=== PATIENT | female | born 1985 | race Caucasian/White ===

== ENCOUNTER 2019-03-20 09:12 | Emergency (ER) | payer BC, OTHER ==
[2019-03-20 10:57] LABS: Urine Blood TRACE (NEG); Urine Glucose NEGATIVE (NEG); Urine Protein 2+ (NEG); Urine Specific Gravity >1.030 (1.005-1.030); Urine pH 5.5 (5.0-7.0)
[2019-03-20] MEDS ORDERED: NA CHLORIDE 0.9% 1,000 ML ONE (11:11)
[2019-03-20 11:27] LABS: Absolute Lymphocytes (CBC) 0.8 K/uL (0.7-4.9); Basophils % 0.7 % (0-1.3); Eosinophils % 0.9 % (0-4.4); Hematocrit 40.4 % (36.0-45.0); Lymphocytes % 13.5 % (15.3-44.8); MPV 9.6 fL (7.6-11.3); Monocytes % 6.9 % (3.3-12.3); RBC Red Blood Cell Count 4.67 M/uL (3.86-4.86)
[2019-03-20] MEDS ORDERED: KETOROLAC 30 MG/ML INJ ONE (11:28)
[2019-03-20 11:41] LABS: Urine Bacteria <20 /HPF (<20)
[2019-03-20 11:42] LABS: Urine Mucus 2+ /HPF (NONE SEEN)
[2019-03-20 11:43] LABS: Urine Culture Reflex Order NOT NEEDED
[2019-03-20 11:46] LABS: Albumin 4.3 g/dL (3.4-5.0); Bilirubin Direct 0.1 mg/dL (0-0.2); Bilirubin Total 0.4 mg/dL (0.2-1.0); Potassium 4.1 mmol/L (3.5-5.1); Protein, Total 7.5 g/dL (6.4-8.2)
--- NOTE | 2019-03-20 12:44 | RAD REPORT ---
EXAM DESCRIPTION: CT - Abdomen Pelvis W Contrast - 03/20/2019 12:36 pm CLINICAL HISTORY: Bilateral hip pain, back pain, pelvic and vaginal pain, dysuria COMPARISON: None. TECHNIQUE: Biphasic, helical CT imaging of the abdomen and pelvis was performed following 100 ml non -ionic IV contrast. Oral contrast was given. All CT scans are performed using dose optimization technique as appropriate and may include automated exposure control or mA/KV adjustment according to patient size. FINDINGS: No suspicious findings in the lung bases. The liver, spleen, and pancreas show no suspicious findings. Gallbladder and biliary tree are also wi thout suspicious finding. Mild to moderate left-sided hydronephrosis is present secondary to a 3 mm left UVJ calculus. There is delayed function of the left kidney due to the obstruction. No pyelonephritis findings. No solid mas s of either kidney. No bladder abnormalities. No adrenal abnormalities. No uterine abnormality. Left ovary is unremarkable. Right ovary contains an 18 millimeter partially involuted cyst. No fallopian t ube dilatation. No dilated bowel loops or bowel wall thickening. No free air or pneumatosis. Physiologic quantity of free fluid in the cul de sac. No hernia, mass or bulky lymphadenopathy. No suspicious bony findings. IMPRESSION: [id number] left-sided hydronephrosis secondary to a 3 mm left UVJ calculus.
--- NOTE | 2019-03-20 13:32 | ER ---
Nurse's Notes [facility] Name: Saumya Chiu Age: 33 yrs Sex: Female : 1985 Arrival Date: 03/20/2019 Time: 09:16 Bed 2 Private MD: Diagnosis: Hydronephrosis with renal and ureteral calculous obstruction;Dehydration Presentation: 03/20 09:44 Presenting complaint: Patient states: vaginal stabbing pain, bilateral hip pain, back sv pain, abd pain, vomiting, lightheaded, dysuria since last night. 09:47 Transition of care: patient was not received from another setting of care. Onset of sg symptoms was March 20, 2019. Risk Assessment: Do you want to hurt yourself or someone else? Patient reports no desire to harm self or others. Initial Sepsis Screen: Does the patient meet any 2 criteria? No. Patient's initial sepsis screen is negative. Does the patient have a suspected source of infection? Yes: Dysuria/Frequency/Urgency/UTI. Care prior to arrival: Medication(s) given: Motrin, taken at 0400 this morning. 09:47 Acuity: CHRISTIANA 3 sg 09:47 Method Of Arrival: Wheelchair sg Triage Assessment: 09:44 General: Appears in no apparent distress. uncomfortable, well developed, Behavior is sv calm, cooperative, appropriate for age. Pain: Complains of pain in back, abdomen and pelvis Pain currently is 9 out of 10 on a pain scale. Quality of pain is described as stabbing, Pain began 1 day ago. Is continuous. Neuro: Level of Consciousness is awake, alert, obeys commands, Oriented to person, place, time, situation, Moves all extremities. Full function Gait is steady. Respiratory: Respiratory effort is even, unlabored, Respiratory pattern is regular, symmetrical. GI: Reports lower abdominal pain, vomiting. : Reports pain with urination. Derm: Skin is pink, warm \T\ dry. Historical: - Allergies: 09:48 No Known Allergies; sg - Home Meds: 09:48 Synthroid 88 mcg Oral tab 1 tab once daily [Active]; sg 09:51 [place] Carbonate Oral [Active]; Lamictal Oral [Active]; gabapentin oral oral [Active]; sv Clonazepam Oral as needed [Active]; - PMHx: 09:48 Hypothyroidism; sg 09:51 Bipolar disorder; Depression; Anxiety; sv - PSHx: 09:48 ; sg - Immunization history:: Adult Immunizations up to date. - Social history:: Smoking status: Patient/guardian denies using tobacco, Patient/guardian denies using street drugs, IV drugs. - Ebola Screening: : Patient negative for fever greater than or equal to 101.5 degrees Fahrenheit, and additional compatible Ebola Virus Disease symptoms Patient denies exposure to infectious person Patient denies travel to an Ebola-affected area in the 21 days before illness onset No symptoms or risks identified at this time. Screenin:51 Abuse screen: Denies threats or abuse. Denies injuries from another. Nutritional sv screening: No deficits noted. Tuberculosis screening: No symptoms or risk factors identified. Fall Risk None identified. Assessment: 09:54 Reassessment: Patient appears in no apparent distress at this time. No changes from sv previously documented assessment. See triage assessment. 11:20 Reassessment: Patient appears in no apparent distress at this time. No changes from sv previously documented assessment. Patient and/or family updated on plan of care and expected duration. Pain level reassessed. Patient is alert, oriented x 3, equal unlabored respirations, skin warm/dry/pink. 12:20 Reassessment: Patient appears in no apparent distress at this time. No changes from sv previously documented assessment. Patient and/or family updated on plan of care and expected duration. Pain level reassessed. Patient is alert, oriented x 3, equal unlabored respirations, skin warm/dry/pink. 14:00 Reassessment: Patient appears in no apparent distress at this time. No changes from sv previously documented assessment. Patient and/or family updated on plan of care and expected duration. Pain level reassessed. Patient is alert, oriented x 3, equal unlabored respirations, skin warm/dry/pink. Vital Signs: 09:44 BP 114 / 86; Pulse 81; Resp 19; Temp 98.4(O); Pulse Ox 100% on R/A; Pain 8/10; jb1 09:52 Weight 62.6 kg; Height 5 ft. 0 in. (152.40 cm); sv 10:43 BP 116 / 87; Pulse 77; Resp 18; Pulse Ox 99% on R/A; jb1 11:30 BP 109 / 86; Pulse 84; Resp 18; Pulse Ox 100% ; sv 12:00 BP 104 / 85; Pulse 74; Resp 16; Pulse Ox 100% ; sv 13:47 BP 107 / 80; Pulse 80; Resp 16; Pulse Ox 99% ; sv 09:52 Body Mass Index 26.95 (62.60 kg, 152.40 cm) sv ED Course: 09:16 Patient arrived in ED. as 09:26 Irma Spaulding FNP-C is [facility]. snw 09:26 Donnie Vásquez MD is Attending Physician. snw 09:43 Janna Multani RN is Primary Nurse. sv 09:47 Triage completed. sg 09:49 Arm band placed on. sg 09:51 Patient has correct armband on for positive identification. Bed in low position. Call sv light in reach. Adult w/ patient. Pulse ox on. NIBP on. Door closed. Warm blanket given. Head of bed elevated. 09:54 Awaiting ED provider evaluation. sv 10:00 Awaiting ED provider evaluation. sv 10:43 Urine collected: clean catch specimen, clear, cloudy. jb1 11:10 Nurse Practitioner and/or Physician Oil Dispatcher to see patient. sv 11:10 Initial lab(s) drawn, by me, sent to lab. Inserted saline lock: 20 gauge in left sv antecubital area, using aseptic technique. Blood collected. Flushed left antecubital with 5 ml normal saline. 11:21 Warm blanket given. sv 12:36 CT Abd/Pelvis - IV Contrast Only In Process Unspecified. EDMS 13:48 No provider procedures requiring assistance completed. IV discontinued, intact, sv bleeding controlled, No redness/swelling at site. Pressure dressing applied. Administered Medications: 11:13 Drug: NS 0.9% 1000 ml Route: IV; Rate: 1 bolus; Site: left antecubital; sv 12:00 Follow up: Response: No adverse reaction; IV Status: Completed infusion; IV Intake: sv 1000ml 11:20 Drug: TORadol 30 mg Route: IVP; Site: left antecubital; sv 12:00 Follow up: Response: No adverse reaction sv 14:00 Drug: KeFLEX 500 mg Route: PO; sv 14:00 Follow up: Response: Medication administered at discharge. sv 14:00 Drug: [place] 5 mg-325 mg 1 tabs Route: PO; sv 14:00 Follow up: Response: Medication administered at discharge. sv Intake: 12:00 IV: 1000ml; Total: 1000ml. sv Outcome: 13:31 Discharge ordered by . snw 13:48 Discharged to home ambulatory, with family. sv 13:48 Condition: stable 13:48 Discharge instructions given to patient, family, Instructed on discharge instructions, follow up and referral plans. no drinking with medication, no driving heavy equipment, medication usage, Demonstrated understanding of instructions, follow-up care, medications, Prescriptions given X 2. 14:01 Patient left the ED. sv Signatures: Dispatcher [employer] EDMS Jose Tello Stephanie, RN RN sv Jd Oseguera RN RN sg Irma Spaulding, PIZZA HUT ASSISTANT-C PIZZA HUT ASSISTANT-Tess Dickinson as Corrections: (The following items were deleted from the chart) 09:51 09:47 Initial Sepsis Screen: Does the patient meet any 2 criteria? Does the patient sv have a suspected source of infection? Yes: Dysuria/Frequency/Urgency/UTI 09:51 09:47 Care prior to arrival: None. sg sv
--- NOTE | 2019-03-20 13:32 | EDPHYS ---
Physician Documentation [facility] Name: Saumya Chiu Age: 33 yrs Sex: Female : 1985 Arrival Date: 03/20/2019 Time: 09:16 Bed 2 Private MD: ED Physician Donnie Vásquez HPI: 03/20 11:04 This 33 yrs old Female presents to ER via Wheelchair with complaints of snw Urinary Problem, Flank Pain, Vomiting, Fever. 11:04 Onset: The symptoms/episode began/occurred suddenly, this morning. Associated signs and snw symptoms: Pertinent positives: abdominal pain, vomiting. It is unknown whether or not the patient has had similar symptoms in the past. It is unknown whether or not the patient has recently seen a physician. no medication changes. Historical: - Allergies: 09:48 No Known Allergies; sg - Home Meds: 09:48 Synthroid 88 mcg Oral tab 1 tab once daily [Active]; sg 09:51 [place] Carbonate Oral [Active]; Lamictal Oral [Active]; gabapentin oral oral [Active]; sv Clonazepam Oral as needed [Active]; - PMHx: 09:48 Hypothyroidism; sg 09:51 Bipolar disorder; Depression; Anxiety; sv - PSHx: 09:48 ; sg - Immunization history:: Adult Immunizations up to date. - Social history:: Smoking status: Patient/guardian denies using tobacco, Patient/guardian denies using street drugs, IV drugs. - Ebola Screening: : Patient negative for fever greater than or equal to 101.5 degrees Fahrenheit, and additional compatible Ebola Virus Disease symptoms Patient denies exposure to infectious person Patient denies travel to an Ebola-affected area in the 21 days before illness onset No symptoms or risks identified at this time. ROS: 11:04 Constitutional: Negative for fever, chills, and weight loss, Eyes: Negative for injury, snw pain, redness, and discharge, ENT: Negative for injury, pain, and discharge, Neck: Negative for injury, pain, and swelling, Cardiovascular: Negative for chest pain, palpitations, and edema, Respiratory: Negative for shortness of breath, cough, wheezing, and pleuritic chest pain, Back: Negative for injury and pain, : Negative for injury, bleeding, discharge, and swelling, MS/Extremity: Negative for injury and deformity, Skin: Negative for injury, rash, and discoloration, Neuro: Negative for headache, weakness, numbness, tingling, and seizure. 11:04 Abdomen/GI: Positive for abdominal pain, nausea, vomiting, of the suprapubic area. Exam: 11:04 Head/Face: Normocephalic, atraumatic. Eyes: Pupils equal round and reactive to light, snw extra-ocular motions intact. Lids and lashes normal. Conjunctiva and sclera are non-icteric and not injected. Cornea within normal limits. Periorbital areas with no swelling, redness, or edema. 11:04 Neck: Trachea midline, no thyromegaly or masses palpated, and no cervical lymphadenopathy. Supple, full range of motion without nuchal rigidity, or vertebral point tenderness. No Meningismus. Chest/axilla: Normal chest wall appearance and motion. Nontender with no deformity. No lesions are appreciated. Cardiovascular: Regular rate and rhythm with a normal S1 and S2. No gallops, murmurs, or rubs. Normal PMI, no JVD. No pulse deficits. Respiratory: Lungs have equal breath sounds bilaterally, clear to auscultation and percussion. No rales, rhonchi or wheezes noted. No increased work of breathing, no retractions or nasal flaring. Back: No spinal tenderness. No costovertebral tenderness. Full range of motion. Skin: Warm, dry with normal turgor. Normal color with no rashes, no lesions, and no evidence of cellulitis. MS/ Extremity: Pulses equal, no cyanosis. Neurovascular intact. Full, normal range of motion. Neuro: Awake and alert, GCS 15, oriented to person, place, time, and situation. Cranial nerves II-XII grossly intact. Motor strength 5/5 in all extremities. Sensory grossly intact. Cerebellar exam normal. Normal gait. Psych: Awake, alert, with orientation to person, place and time. Behavior, mood, and affect are within normal limits. 11:04 Constitutional: The patient appears alert, awake, anxious. 11:04 ENT: Mouth: Oral mucosa: dry. 11:04 Abdomen/GI: Inspection: abdomen appears normal, Bowel sounds: hypoactive, Palpation: moderate abdominal tenderness, in the suprapubic area. Vital Signs: 09:44 BP 114 / 86; Pulse 81; Resp 19; Temp 98.4(O); Pulse Ox 100% on R/A; Pain 8/10; jb1 09:52 Weight 62.6 kg; Height 5 ft. 0 in. (152.40 cm); sv 10:43 BP 116 / 87; Pulse 77; Resp 18; Pulse Ox 99% on R/A; jb1 11:30 BP 109 / 86; Pulse 84; Resp 18; Pulse Ox 100% ; sv 12:00 BP 104 / 85; Pulse 74; Resp 16; Pulse Ox 100% ; sv 13:47 BP 107 / 80; Pulse 80; Resp 16; Pulse Ox 99% ; sv 09:52 Body Mass Index 26.95 (62.60 kg, 152.40 cm) sv MDM: 09:39 Patient medically screened. snw 13:34 Data reviewed: vital signs, nurses notes. Data interpreted: Pulse oximetry: on room air snw is 100 %. Interpretation: normal. Counseling: I had a detailed discussion with the patient and/or guardian regarding: the historical points, exam findings, and any diagnostic results supporting the discharge/admit diagnosis, lab results, radiology results, the need for outpatient follow up, to return to the emergency department if symptoms worsen or persist or if there are any questions or concerns that arise at home. Special discussion: I have referred the patient to see his PCP for further evaluation of high blood pressure. Based on the history and exam findings, there is no indication for further emergent testing or inpatient evaluation. I discussed with the patient/guardian the need to see the urologist for further evaluation of the symptoms. 03/20 09:38 Order name: Urine Culture [facility] 03/20 09:38 Order name: Urine Microscopic Only; Complete Time: 11:47 snw 03/20 10:40 Order name: Urine Dipstick--Ancillary (enter results); Complete Time: 10:58 ag 03/20 10:40 Order name: Urine --Ancillary (enter results); Complete Time: 10:58 ag 03/20 10:51 Order name: Basic Metabolic Panel; Complete Time: 11:47 snw 03/20 10:51 Order name: CBC with Diff; Complete Time: 11:36 snw 03/20 10:51 Order name: Creatinine for Radiology; Complete Time: 11:47 snw 03/20 10:51 Order name: Hepatic Function; Complete Time: 11:47 snw 03/20 10:51 Order name: Lipase; Complete Time: 11:47 snw 03/20 10:58 Order name: Goessel; Complete Time: 12:08 snw 03/20 12:08 Order name: CT Abd/Pelvis - IV Contrast Only; Complete Time: 12:50 snw 03/20 09:38 Order name: Urine Test (obtain specimen); Complete Time: 10:32 snw 03/20 09:38 Order name: Urine Dipstick-Ancillary (obtain specimen); Complete Time: 10:32 snw 03/20 10:51 Order name: Labs collected and sent; Complete Time: 11:13 snw Administered Medications: 11:13 Drug: NS 0.9% 1000 ml Route: IV; Rate: 1 bolus; Site: left antecubital; sv 12:00 Follow up: Response: No adverse reaction; IV Status: Completed infusion; IV Intake: sv 1000ml 11:20 Drug: TORadol 30 mg Route: IVP; Site: left antecubital; sv 12:00 Follow up: Response: No adverse reaction sv 14:00 Drug: KeFLEX 500 mg Route: PO; sv 14:00 Follow up: Response: Medication administered at discharge. sv 14:00 Drug: [place] 5 mg-325 mg 1 tabs Route: PO; sv 14:00 Follow up: Response: Medication administered at discharge. sv Disposition: 19:03 Co-signature as Attending Physician, Donnie Vásquez MD I agree with the assessment and kdr plan of care. Disposition: 03/20/19 13:31 Discharged to Home. Impression: Hydronephrosis with renal and ureteral calculous obstruction, Dehydration. - Condition is Stable. - Discharge Instructions: Dehydration, Adult, Kidney Stones, Hydronephrosis, Dietary Guidelines to Help Prevent Kidney Stones, Rehydration, Adult. - Prescriptions for Keflex 500 mg Oral Capsule - take 1 capsule by ORAL route every 8 hours for 10 days; 30 capsule. Tylenol- Codeine #4 300-60 mg Oral Tablet - take 1 tablet by ORAL route every 6 hours As needed; 6 tablet. - Medication Reconciliation Form, Thank You Letter, Antibiotic Education, Prescription Opioid Use form. - Follow up: Private Physician; When: 2 - 3 days; Reason: Recheck today's complaints, Continuance of care, Re-evaluation by your physician. Follow up: Emergency Department; When: As needed; Reason: Worsening of condition. - Notes: Please speak with your Doctor regarding a lower than expected lithium level. Signatures: Dispatcher [employer] Janna Villeda, RN Jd Gregorio RN RN sg Rittger, Kevin, MD MD [facility] Irma Spaulding, FIRST CRUSHER-C FIRST CRUSHER-Csnw Corrections: (The following items were deleted from the chart) 10:32 10:24 Chun ordered. snw 14:01 13:31 03/20/2019 13:31 Discharged to Home. Impression: Hydronephrosis with renal and sv ureteral calculous obstruction; Dehydration. Condition is Stable. Forms are Medication Reconciliation Form, Thank You Letter, Antibiotic Education, Prescription Opioid Use. Follow up: Private Physician; When: 2 - 3 days; Reason: Recheck today's complaints, Continuance of care, Re-evaluation by your physician. Follow up: Emergency Department; When: As needed; Reason: Worsening of condition. w
[2019-03-20] MEDS ORDERED: CEPHALEXIN 250 MG CAP ONE (14:00)
[2019-03-20] MEDS ORDERED: HYDROCODONE/APAP 5/325 MG TAB ONE (14:00)
== END 2019-03-20 14:01 | disposition home or self-care (01) ==
LOC: ER 09:12
DX: N13.2 Hydronephrosis with renal and ureteral calculous obstruction (principal); E86.0 Dehydration; E03.9 Hypothyroidism, unspecified; F32.9 Major depressive disorder, single episode, unspecified; F41.9 Anxiety disorder, unspecified
CPT/HCPCS: 36415; 74177; 80048; 80076; 80178; 81003; 81015; 81025; 83690; 85025; 87086; 87088; 96361; 96374; 99284; J7030; Q9967

== ENCOUNTER 2023-02-06 09:40 | Emergency (ER) | payer BC, SELFPAY ==
--- NOTE | 2023-02-06 11:35 | RAD REPORT ---
EXAM DESCRIPTION: US - Abdomen Exam Limited - 02/06/2023 10:28 am CLINICAL HISTORY: RUQ pain COMPARISON: Abdomen Pelvis W Contrast dated 03/20/2019 TECHNIQUE: Sonographic grayscale and color flow images of the right upper abdominal quadrant were obtained. FINDINGS: The gallbladder demonstrates no gallstones. Moderate amount of layering sludge. No pericho lecystic fluid or gallbladder wall thickening. The common bile duct is normal measuring 4 mm. The liver demonstrates no findings of intrahepatic biliary dilatation. IMPRESSION: Layering sludge within the gallbladder. No evidence of cholelithiasis or acute cholecyst itis.
[2023-02-06] MEDS ORDERED: MAGNES/ALUMIN/SIMET 30ML UCUP ONE (11:42)
[2023-02-06] MEDS ORDERED: ONDANSETRON 4 MG/2 ML VIAL ONE (11:42)
[2023-02-06] MEDS ORDERED: FAMOTIDINE 20 MG/2 ML VIAL IV ONE (11:42)
[2023-02-06 11:50] LABS: Absolute Lymphocytes (CBC) 1.5 K/uL (0.7-4.9); Lymphocytes % 17.2 % (15.3-44.8); MPV 7.7 fL (7.6-11.3); RBC Red Blood Cell Count 4.32 M/uL (3.86-4.86)
[2023-02-06 13:31] LABS: Albumin 3.7 g/dL (3.4-5.0); Bilirubin Total 0.2 mg/dL (0.2-1.0); Potassium 4.4 mEq/L (3.5-5.1); Protein, Total 6.7 g/dL (6.4-8.2)
[2023-02-06 14:07] LABS: Specific Gravity 1.012 (1.005-1.030); Urine Bilirubin NEGATIVE (Negative); Urine Blood Negative (Negative); Urine Clarity Clear (Clear); Urine Color Light-Yellow (Yellow); Urine Glucose NEGATIVE (Negative); Urine Protein NEGATIVE (Negative); Urine Urobilinogen Normal (Normal); Urine pH 5.5 (5.0-7.0)
[2023-02-06 14:09] LABS: Specific Gravity 1.021 (1.005-1.030)
--- NOTE | 2023-02-06 14:12 | RAD REPORT ---
EXAM DESCRIPTION: CT - Abdomen Pelvis Wo Contrast - 02/06/2023 1:49 pm CLINICAL HISTORY: Abdominal pain COMPARISON: 2019 TECHNIQUE: Computed axial tomography of the abdomen and pelvis was obtained. IV and oral contrast we re not requested. All CT scans are performed using dose optimization technique as appropriate and may include automated exposure control or mA/KV adjustment according to patient size. FINDINGS: The evaluation of solid organs, vessels and bowel is limited secondary to the lack of con trast administration. The liver, spleen, pancreas, adrenals and kidneys appear grossly normal. The appendix is normal. There is no evidence of diverticulitis. No adnexal mass Small umbilical hernia IMPRESSION: No acute abnormality is displayed.
--- NOTE | 2023-02-06 14:30 | EDPHYS ---
Physician Documentation [facility] Name: Saumya Chiu Age: 37 yrs Sex: Female : 1985 Arrival Date: 02/06/2023 Time: 09:40 Bed 11 Private MD: ED Physician Tyrone Ternt HPI: 02/06 10:08 This 37 yrs old Female presents to ER via Ambulatory with complaints of bs3 Abdominal Pain. 10:08 Patient notes a sharp epigastric pain that started yesterday radiates around to her bs3 abdomen without any other associated symptoms never had it before took Gas-X without relief denies fevers chills chest pain shortness of breath denies lower abdominal pain denies any chance she is nothing makes the pain better or worse she does not associate it with food she does smoke regularly. Historical: - Allergies: 10:29 No Known Allergies; hb - PMHx: 10:29 Anxiety; Bipolar disorder; Depression; Hypothyroidism; hb - Immunization history:: Adult Immunizations up to date. - Social history:: Smoking status: Patient reports the use of cigarette tobacco products, smokes one-half pack cigarettes per day. ROS: 10:08 Constitutional: Negative for fever, chills bs3 10:08 All other systems are negative. Exam: 10:08 Constitutional: Patient appears uncomfortable secondary to pain Head/Face: bs3 Normocephalic, atraumatic. Eyes: Pupils equal round and reactive to light, extra-ocular motions intact. Lids and lashes normal. ENT: mmm, no posterior phyarngeal erythema Neck: Trachea midline, no thyromegaly, no neck stiffness Chest/axilla: Normal chest wall appearance and motion. Nontender with no deformity. No lesions are appreciated. Cardiovascular: Regular rate and rhythm with a normal S1 and S2. symmetric pulses in upper extremities Respiratory: Lungs have equal breath sounds bilaterally, clear to auscultation, no respiratory distress Abdomen/GI: Pointing to her epigastric region holding her upper abdomen no lower abdominal tenderness Skin: Warm, dry with normal turgor. Normal color with no rashes, no lesions, and no evidence of cellulitis. MS/ Extremity: Pulses equal, no cyanosis. Neurovascular intact. Full, normal range of motion. Neuro: Awake and alert, GCS 15, oriented to person, place, time, and situation. Cranial nerves II-XII grossly intact. Motor strength 5/5 in all extremities. Sensory grossly intact. Psych: Awake, alert, with orientation to person, place and time. Behavior, mood, and affect are within normal limits. Vital Signs: 10:28 BP 101 / 79; Pulse 94; Resp 18; Temp 98.1(TE); Weight 74.84 kg; Height 5 ft. 1 in. ; hb Pain 8/10; 10:28 Body Mass Index 31.18 (74.84 kg, 154.94 cm) hb 10:28 Pain Scale: Adult hb MDM: 10:01 Patient medically screened. bs3 10:08 Data reviewed: vital signs, nurses notes. ED course: Possible gastritis, peptic ulcer bs3 disease, cholelithiasis Khushboo cystitis, pancreatitis doubt perforation we will do serial exams and reassess. 14:15 ED course: Work-up completely nondiagnostic history and physical not consistent with a [facility] lower abdominal etiology of her symptoms advised outpatient follow-up with GI. 14:29 ED course: Work-up negative for acute pathology patient feeling better advised [facility] outpatient GI follow-up return precautions given. 02/06 10:07 Order name: CBC with Diff; Complete Time: 12:10 3 02/06 10:07 Order name: Comprehensive Metabolic Panel; Complete Time: 14:15 3 02/06 10:07 Order name: Lipase; Complete Time: 14:15 3 02/06 10:07 Order name: Test, Urine; Complete Time: 14:15 3 02/06 10:07 Order name: Urinalysis w/ reflexes; Complete Time: 14:15 3 02/06 10:07 Order name: US Abdomen Limited; Complete Time: 12:10 3 02/06 11:30 Order name: CT Abd/Pelvis - Without Contrast; Complete Time: 14:15 3 02/06 11:52 Order name: Labs - recollect needed: recollect green top; Complete Time: 13:34 bd Administered Medications: 11:44 Drug: Famotidine IVP 20 mg Route: IVP; Site: right antecubital; hb 11:44 Drug: Alum-Mag Hydroxide-Simeth PO Suspension (200 mg-200 mg-20 mg/5 mL) 30 ml Route: hb PO; 11:45 Drug: Ondansetron IVP 4 mg Route: IVP; Site: right antecubital; hb Disposition Summary: 02/06/23 14:30 Discharge Ordered Location: Home bs3 Problem: new bs3 Symptoms: have worsened bs3 Condition: Stable bs3 Diagnosis - Upper abdominal pain, unspecified bs3 Followup: bs3 - With: Private Physician - When: 2 - 3 days - Reason: Re-evaluation by your physician Discharge Instructions: - Discharge Summary Sheet bs3 - Pain Without a Known Cause bs3 - Abdominal Pain, Adult, [id number] bs3 Forms: - Work release form hb - Medication Reconciliation Form bs3 - Thank You Letter bs3 - Antibiotic Education bs3 - Prescription Opioid Use bs3 Prescriptions: - ondansetron 8 mg Oral tablet,disintegrating - take 1 tablet by ORAL route every 8 hours; 12 tablet; Refills: 0, Product bs3 Selection Permitted Signatures: Dispatcher [employer] Yas Gan Heather, RN RN hb Stein, Brandon, MD MD bs3
--- NOTE | 2023-02-06 14:30 | ER ---
Nurse's Notes [facility] Name: Saumya Chiu Age: 37 yrs Sex: Female : 1985 Arrival Date: 02/06/2023 Time: 09:40 Bed 11 Private MD: Diagnosis: Upper abdominal pain, unspecified Presentation: 02/06 10:28 Chief complaint: Sharp epigastric pain and nausea since last night. Coronavirus screen: hb At this time, the client does not indicate any symptoms associated with coronavirus-19. Ebola Screen: No symptoms or risks identified at this time. Initial Sepsis Screen: Does the patient meet any 2 criteria? No. Patient's initial sepsis screen is negative. Does the patient have a suspected source of infection? No. Patient's initial sepsis screen is negative. Risk Assessment: Do you want to hurt yourself or someone else? Patient reports no desire to harm self or others. Onset of symptoms was February 05, 2023. 10:28 Method Of Arrival: Ambulatory hb 10:28 Acuity: [place]ST[place] 3 hb Triage Assessment: 12:00 General: Appears in no apparent distress. Behavior is cooperative, appropriate for age, iw anxious. Pain: Complains of pain in abdomen. EENT: No deficits noted. Neuro: No deficits noted. Cardiovascular: No deficits noted. Respiratory: No deficits noted. GI: Reports upper abdominal pain, nausea. : No signs and/or symptoms were reported regarding the genitourinary system. Derm: No deficits noted. Musculoskeletal: No deficits noted. Historical: - Allergies: 10:29 No Known Allergies; hb - PMHx: 10:29 Anxiety; Bipolar disorder; Depression; Hypothyroidism; hb - Immunization history:: Adult Immunizations up to date. - Social history:: Smoking status: Patient reports the use of cigarette tobacco products, smokes one-half pack cigarettes per day. Screenin:50 [facility] ED Fall Risk Assessment (Adult) History of falling in the last 3 months, iw including since admission No falls in past 3 months (0 pts). Abuse screen: Denies threats or abuse. Denies injuries from another. Nutritional screening: No deficits noted. Tuberculosis screening: No symptoms or risk factors identified. Assessment: 14:50 Reassessment: PT DC HOME AMBULATORY. iw Vital Signs: 10:28 BP 101 / 79; Pulse 94; Resp 18; Temp 98.1(TE); Weight 74.84 kg; Height 5 ft. 1 in. ; hb Pain 8/10; 10:28 Body Mass Index 31.18 (74.84 kg, 154.94 cm) hb 10:28 Pain Scale: Adult hb ED Course: 09:50 Patient arrived in ED. mr 10:02 Tyrone Trent MD is Attending Physician. bs3 10:29 Triage completed. hb 10:29 Arm band placed on. hb 10:30 US Abdomen Limited In Process Unspecified. EDMS 11:45 Inserted saline lock: 20 gauge in right antecubital area, using aseptic technique. hb Blood collected. 13:45 CT Abd/Pelvis - Without Contrast In Process Unspecified. EDMS 14:50 Patient has correct armband on for positive identification. Bed in low position. Call iw light in reach. Side rails up X2. 14:50 No provider procedures requiring assistance completed. IV discontinued, intact, iw bleeding controlled, No redness/swelling at site. Pressure dressing applied. Administered Medications: 11:44 Drug: Famotidine IVP 20 mg Route: IVP; Site: right antecubital; hb 11:44 Drug: Alum-Mag Hydroxide-Simeth PO Suspension (200 mg-200 mg-20 mg/5 mL) 30 ml Route: hb PO; 11:45 Drug: Ondansetron IVP 4 mg Route: IVP; Site: right antecubital; hb Medication: 14:50 VIS not applicable for this client. iw Outcome: 14:30 Discharge ordered by . bs3 14:50 Discharged to home ambulatory, with family. iw 14:50 Condition: stable 14:50 Discharge instructions given to patient, Instructed on discharge instructions, follow up and referral plans. medication usage, Demonstrated understanding of instructions, follow-up care, medications, Prescriptions given X 1. 14:52 Patient left the ED. iw Signatures: Dispatcher [employer] EDWA PainterYen peña Delia Gill RN CARRIE Angely Delgado RN RN Tyrone Trent MD MD bs3 Corrections: (The following items were deleted from the chart) 14:43 12:00 General: Appears in no apparent distress. iw iw
[2023-02-06 15:07] VITALS: BP 101/79; TEMP 98.1
== END 2023-02-06 14:52 | disposition home or self-care (01) ==
LOC: ER 09:40
DX: R10.13 Epigastric pain (principal); F17.210 Nicotine dependence, cigarettes, uncomplicated
CPT/HCPCS: 36415; 74176; 76705; 80053; 81003; 81025; 83690; 85025; 96374; 96375; 99284; J2405